=== PATIENT | female | born 1960 | race African-American/Black ===

== ENCOUNTER 2022-05-15 08:36 | Outpatient (CLI) | payer BC | END 2022-05-15 08:37 | disposition home or self-care (01) | LOC: CSHMAMMO 08:36 | PROVIDERS: ATTEND Family Medicine | DX: Z12.31 Encounter for screening mammogram for malignant neoplasm of breast (principal) | CPT/HCPCS: 77063; 77067 ==

== ENCOUNTER 2023-07-31 16:16 | Outpatient (CLI) | payer BC | END 2023-07-31 16:17 | disposition home or self-care (01) | LOC: CSHRAD 16:16 | PROVIDERS: ATTEND Family Medicine | DX: M25.561 Pain in right knee (principal); M17.11 Unilateral primary osteoarthritis, right knee ==

== ENCOUNTER 2023-08-26 15:27 | Outpatient (CLI) | payer BC | END 2023-08-26 15:28 | disposition home or self-care (01) | LOC: CSHMAMMO 15:27 | PROVIDERS: ATTEND Family Medicine | DX: Z12.31 Encounter for screening mammogram for malignant neoplasm of breast (principal) | CPT/HCPCS: 77063; 77067 ==

== ENCOUNTER 2024-09-29 07:51 | Outpatient (CLI) | payer BC | END 2024-09-29 07:52 | disposition home or self-care (01) | LOC: CSHMAMMO 07:51 | PROVIDERS: ATTEND Family Medicine | DX: Z12.31 Encounter for screening mammogram for malignant neoplasm of breast (principal) | CPT/HCPCS: 77063; 77067 ==